=== PATIENT | female | born 1995 | race Caucasian/White ===

== ENCOUNTER 2024-07-04 08:09 | Outpatient (CLI) | payer SELFPAY | END 2024-07-04 08:10 | disposition home or self-care (01) | LOC: AMB 07-06 10:12 | PROVIDERS: Visit Provider Family Medicine | DX: S49.91XA Unspecified injury of right shoulder and upper arm, initial encounter (principal); S89.92XA Unspecified injury of left lower leg, initial encounter; V47.0XXA Car driver injured in collision with fixed or stationary object in nontraffic accident, initial encounter; Y92.410 Unspecified street and highway as the place of occurrence of the external cause | CPT/HCPCS: A0998 ==